=== PATIENT | male | born 1975 | race Two or more races ===

== ENCOUNTER 2022-05-12 21:11 | Emergency (ER) | payer OTHER ==
--- NOTE | 2022-05-12 21:33 | ER ---
Nurse's Notes [facility] Name: Oneil Pringle Age: 46 yrs Sex: Male : 1975 Arrival Date: 05/12/2022 Time: 21:13 Bed Waiting Private MD: Diagnosis: Otitis media, unspecified, left ear;Unspecified otitis externa, left ear Presentation: 05/12 21:23 Chief complaint: Patient states: Left ear pain- went swimming two days ago. Coronavirus ld1 screen: At this time, the client does not indicate any symptoms associated with coronavirus-19. Ebola Screen: No symptoms or risks identified at this time. Initial Sepsis Screen: Does the patient meet any 2 criteria? No. Patient's initial sepsis screen is negative. Does the patient have a suspected source of infection? No. Patient's initial sepsis screen is negative. Risk Assessment: Do you want to hurt yourself or someone else? Patient reports no desire to harm self or others. Onset of symptoms was May 12, 2022. 21:23 Method Of Arrival: Ambulatory ld1 21:23 Acuity: DIVYA 4 ld1 Triage Assessment: 21:24 General: Appears in no apparent distress. comfortable, Behavior is calm, cooperative, ld1 appropriate for age. Pain: Complains of pain in left ear Pain does not radiate. Pain currently is 6 out of 10 on a pain scale. Quality of pain is described as throbbing. EENT: Reports pain in left ear. Neuro: Level of Consciousness is awake, alert, obeys commands, Oriented to person, place, time, situation. Cardiovascular: Capillary refill < 3 seconds Patient's skin is warm and dry. Respiratory: Airway is patent Respiratory effort is even, unlabored. GI: Abdomen is flat, non-distended. : No signs and/or symptoms were reported regarding the genitourinary system. Derm: No signs and/or symptoms reported regarding the dermatologic system. Musculoskeletal: No signs and/or symptoms reported regarding the musculoskeletal system. Historical: - Allergies: 21:24 No Known Allergies; ld1 - Home Meds: 21:24 None [Active]; ld1 - PMHx: 21:24 None; ld1 - PSHx: 21:24 None; ld1 - Immunization history:: Adult Immunizations up to date, Client reports receiving the 2nd dose of the Covid vaccine. - Social history:: Smoking status: Patient denies any tobacco usage or history of. Patient uses alcohol, occasionally. Screenin:25 Abuse screen: Denies threats or abuse. Denies injuries from another. Nutritional ld1 screening: No deficits noted. Tuberculosis screening: No symptoms or risk factors identified. Fall Risk None identified. Assessment: 21:25 Reassessment: See triage assessment. ld1 21:26 Reassessment: ERP in triage assessing patient. ld1 Vital Signs: 21:23 BP 152 / 81; Pulse 73; Resp 18; Temp 98.0(TE); Pulse Ox 98% on R/A; Weight 81.65 kg; ld1 Height 5 ft. 10 in. (177.80 cm); Pain 6/10; 21:23 Body Mass Index 25.83 (81.65 kg, 177.80 cm) ld1 ED Course: 21:13 Patient arrived in ED. mr 21:18 Alcides Sanchez PA is PHCP. cp 21:18 Alcides Redman MD is Attending Physician. cp 21:24 Triage completed. ld1 21:24 Arm band placed on right wrist. ld1 21:25 Patient has correct armband on for positive identification. Bed in low position. Call ld1 light in reach. Side rails up X2. crtts on. Pulse ox on. NIBP on. Door closed. Noise minimized. 21:35 No provider procedures requiring assistance completed. Patient did not have IV access ld1 during this emergency room visit. Administered Medications: No medications were administered Medication: 21:25 VIS not applicable for this client. ld1 Outcome: 21:32 Discharge ordered by . cp 21:35 Discharged to home ambulatory. ld1 21:35 Condition: stable 21:35 Discharge instructions given to patient, Instructed on discharge instructions, follow up and referral plans. medication usage, Demonstrated understanding of instructions, follow-up care, medications, Prescriptions given X 2. 21:35 Patient left the ED. ld1 Signatures: Yessica Chew mr Alcides Sanchez PA PA cp Julieta Tripathi RN RN ld1
--- NOTE | 2022-05-12 21:33 | EDPHYS ---
Physician Documentation [facility] Name: Oneil Pringle Age: 46 yrs Sex: Male : 1975 Arrival Date: 05/12/2022 Time: 21:13 Bed Waiting Private MD: JAMILA Physician Alcides Redman HPI: 05/12 21:28 This 46 yrs old Male presents to ER via Ambulatory with complaints of Ear Pain. cp 21:28 The patient presents with pain, that is acute, swelling, tenderness. The complaints cp affect the left ear. Onset: The symptoms/episode began/occurred 2 day(s) ago. Associated signs and symptoms: Pertinent negatives: cough, fever, rhinorrhea, sinus trouble, sore throat, vomiting. Severity of symptoms: in the emergency department the symptoms are unchanged. Patient reports swimming 2 days ago. Historical: - Allergies: 21:24 No Known Allergies; ld1 - Home Meds: 21:24 None [Active]; ld1 - PMHx: 21:24 None; ld1 - PSHx: 21:24 None; ld1 - Immunization history:: Adult Immunizations up to date, Client reports receiving the 2nd dose of the Covid vaccine. - Social history:: Smoking status: Patient denies any tobacco usage or history of. Patient uses alcohol, occasionally. ROS: 21:29 Constitutional: Negative for body aches, chills, fever, poor PO intake. cp 21:29 ENT: Positive for ear pain, Negative for drainage from ear(s), sinus congestion, sore throat, difficulty swallowing, difficulty handling secretions. 21:29 Neck: Negative for pain with movement, pain at rest, stiffness. 21:29 Respiratory: Negative for cough, shortness of breath, wheezing. 21:29 Abdomen/GI: Negative for abdominal pain, nausea, vomiting, diarrhea, constipation. 21:29 Neuro: Negative for altered mental status, headache, weakness. 21:29 All other systems are negative. Exam: 21:30 Head/Face: Normocephalic, atraumatic. cp 21:30 Constitutional: The patient appears in no acute distress, alert, awake, non-toxic, well developed, well nourished. 21:30 Eyes: Periorbital structures: appear normal, Conjunctiva: normal, no exudate, no injection, Lids and lashes: appear normal, bilaterally. 21:30 ENT: External ear(s): pain with movement, that is mild, of the left ear canal, swelling, that is minimal, on the left post auricular, Ear canal(s): erythema, that is minimal, of the left canal, purulent discharge, that is minimal, in the left canal, swelling, that is minimal, of the left canal, TM's: erythema, that is moderate, on the left, Examination of the other ear shows no obvious abnormality, Nose: is normal, Posterior pharynx: Airway: no evidence of obstruction, patent. 21:30 Neck: ROM/movement: is normal, is supple, without pain, no range of motions limitations, no meningismus. 21:30 Chest/axilla: Inspection: normal. 21:30 Cardiovascular: Rate: normal. 21:30 Respiratory: the patient does not display signs of respiratory distress, Respirations: normal. Vital Signs: 21:23 BP 152 / 81; Pulse 73; Resp 18; Temp 98.0(TE); Pulse Ox 98% on R/A; Weight 81.65 kg; ld1 Height 5 ft. 10 in. (177.80 cm); Pain 6/10; 21:23 Body Mass Index 25.83 (81.65 kg, 177.80 cm) ld1 MDM: 21:32 Patient medically screened. cp 21:32 Data reviewed: vital signs, nurses notes. cp 21:32 Differential diagnosis: otitis media, otitis externa, ruptured TM, acute otalgia, cp cerumen impaction, barotrauma . Counseling: I had a detailed discussion with the patient and/or guardian regarding: the historical points, exam findings, and any diagnostic results supporting the discharge/admit diagnosis, to return to the emergency department if symptoms worsen or persist or if there are any questions or concerns that arise at home. Administered Medications: No medications were administered Disposition Summary: 05/12/22 21:32 Discharge Ordered Location: Home cp Problem: new cp Symptoms: are unchanged cp Condition: Stable cp Diagnosis - Otitis media, unspecified, left ear cp - Unspecified otitis externa, left ear cp Followup: cp - With: Private Physician - When: 2 - 3 days - Reason: Worsening of condition Discharge Instructions: - Discharge Summary Sheet cp - Otitis Media, Adult cp - Otitis Externa cp Forms: - Medication Reconciliation Form cp - Thank You Letter cp - Antibiotic Education cp - Prescription Opioid Use cp Prescriptions: - Augmentin 875-125 mg Oral Tablet - take 1 tablet by ORAL route every 12 hours for 10 days; 20 tablet; Refills: 0, cp Product Selection Permitted - Ciprodex 0.3-0.1 % Otic Drops, Suspension - instill 4 drops by OTIC route every 12 hours for 7 days , for ears ONLY; 1 cp Container; Refills: 0, Product Selection Permitted Signatures: Alcides Sanchez PA PA cp Julieta Tripathi, RN RN ld1
[2022-05-12 22:43] VITALS: BP 152/81; TEMP 98; O2SAT 98
== END 2022-05-12 21:35 | disposition home or self-care (01) ==
LOC: ER 21:11
DX: H66.92 Otitis media, unspecified, left ear (principal); H60.92 Unspecified otitis externa, left ear